=== PATIENT | female | born 1975 | race Caucasian/White ===

== ENCOUNTER 2019-11-13 16:09 | Emergency (ER) | payer OTHER ==
[~2019-11-13] VITALS: Ht 162.6 cm; Wt 111.1 kg
[2019-11-13 16:25] VITALS: BP 151/75
[2019-11-13] MEDS ORDERED: KETOROLAC TROMETH 60MG/2ML VIAL IM ONE (17:15)
== END 2019-11-13 17:52 | disposition home or self-care (01) ==
LOC: ER 16:09
DX: S93.402A Sprain of unspecified ligament of left ankle, initial encounter (principal); S80.01XA Contusion of right knee, initial encounter; Z88.0 Allergy status to penicillin; W10.9XXA Fall (on) (from) unspecified stairs and steps, initial encounter; Y93.01 Activity, walking, marching and hiking; Y92.89 Other specified places as the place of occurrence of the external cause; Y99.0 Civilian activity done for income or pay
CPT/HCPCS: 29515; 73610; 96372; 99283; J1885

== ENCOUNTER 2023-02-09 15:47 | Inpatient (IN) | payer BC, OTHER ==
[~2023-02-09] VITALS: Ht 162.6 cm; Wt 119.0 kg
[2023-02-09 16:47] LABS: Basophils # (auto) 0.2 10 ^3/uL (0-0.2); Basophils % (auto) 1.6 % (0.0-2.0); Eosinophils # (auto) 0.2 10 ^3/uL (0-0.8); Eosinophils % (auto) 1.2 % (0.0-7.0); Hematocrit 40.3 % (36.0-46.0); Hemoglobin 13.5 g/dL (12.2-16.2); Lymphocytes # (auto) 2.6 10 ^3/uL (0.4-5.4); Lymphocytes % (auto) 18.8 % (10.0-50.0); Mean Corpuscular Hemoglobin 30.5 pg (28.0-32.0); Mean Corpuscular Hgb Conc. 33.6 g/dL (32.0-36.0); Mean Corpuscular Volume 90.9 fL (80.0-100.0); Monocytes % (auto) 7.1 % (0.0-12.0); Neutrophils # (auto) 9.9 10 ^3/uL (1.6-8.6); Neutrophils % (auto) 71.3 % (37.0-80.0); Red Blood Cells 4.43 10^6/uL (4.0-5.20); White Blood Cell 13.8 10^3/uL (4.4-10.8)
[2023-02-09 16:53] LABS: Urine Bacteria FEW /hpf (None Seen); Urine Blood Negative /uL (Negative); Urine Clarity HAZY (Clear); Urine Color Yellow (Yellow); Urine Mucus FEW (None Seen); Urine Protein, UAD TRACE (Negative); Urine Specific Gravity 1.026 (1.001-1.035); Urine WBC 3 /hpf (0 - 5); Urine pH 6.5 (5.0-8.0)
[2023-02-09 17:15] LABS: Alanine Aminotransferase 41 U/L (7-40); Albumin 4.5 g/dL (3.2-4.8); Aspartate Aminotransferase 28 U/L (13-40); Bilirubin, Total 0.4 mg/dL (0.2-1.0); Total Protein 7.2 g/dL (5.7-8.2)
[2023-02-09 17:17] LABS: Chloride 106 mmol/L (98-107); Potassium 4.4 mmol/L (3.5-5.1); Sodium 136 mmol/L (136-145)
[2023-02-09 17:19] LABS: Anion Gap 7 (5-15); Carbon Dioxide 23 mmol/L (20-30)
[2023-02-09 17:24] LABS: Alkaline Phosphatase 102 U/L (46-116); BUN/Creatinine Ratio 12.3 (10.0-20.0); Blood Urea Nitrogen 9 mg/dL (9-23); Glucose 225 mg/dL (74-106); Lipase 102 U/L (12-53)
[2023-02-09 17:34] LABS: Amylase 181 U/L (30-118)
[2023-02-09] MEDS ORDERED: MORPHINE SULFATE 4 MG/ML SYR/VIAL IV ONE (18:15)
[2023-02-09] MEDS ORDERED: ONDANSETRON HCL 4 MG/2 ML VIAL IV ONE (18:15)
[2023-02-09] MEDS ORDERED: SODIUM CHLORIDE 0.9% 1,000 ML IV ONE (18:15)
[2023-02-09] MEDS ORDERED: SODIUM CHLORIDE 0.9% 1,000 ML IVB ONE (18:15)
[2023-02-09 22:00] VITALS: PULSE 89; RESP 16; O2SAT 95
[2023-02-09] MEDS ORDERED: MORPHINE SULFATE INJ 2 MG/ml SYRG IV PRN ×2 (22:15→23:15)
[2023-02-09] MEDS ORDERED: DOCUSATE SOD 100 MG CAP PO PRN (22:15)
[2023-02-09] MEDS ORDERED: IBUPROFEN 600 MG TAB PO PRN (22:15)
[2023-02-09] MEDS ORDERED: DEXTROSE (50%) 50ML SYRG IV PRN (22:15)
[2023-02-09] MEDS ORDERED: hydrALAZINE HCL 20 MG/ML VL IV ONE (22:30)
[2023-02-09] MEDS: SODIUM CHLORIDE 0.9% 1,000 ML IV SCH (22:56)
[2023-02-09] MEDS ORDERED: NITROGLYCERIN 0.4 MG SL TAB SL PRN (23:15)
[2023-02-09] MEDS: HYDROmorphone HCL 2 MG/ML VL/or syr IV PRN (23:33)
[2023-02-09] MEDS: ONDANSETRON HCL 4 MG/2 ML VIAL IV PRN (23:33)
[2023-02-10] VITALS (9 sets, daily range): BP systolic 127–168; BP diastolic 68–98; PULSE 71–95; RESP 16–20; TEMP 37.4; O2SAT 94–97
[2023-02-10] MEDS: ACCU-CHEK COMFORT CURVE STRIP VI SCH ×5 (00:34→21:59)
[2023-02-10] MEDS: InsuLIN REG 1unit/0.01ml Soln (100units/ml) SC SCH ×5 (00:35→22:08)
[2023-02-10] MEDS: hydrALAZINE HCL 20 MG/ML VL IV PRN ×2 (01:21→22:13)
[2023-02-10] MEDS: HYDROcodone-ACET 5/325MG TAB PO PRN ×4 (03:10→22:14)
[2023-02-10 05:45] LABS: Basophils # (auto) 0.2 10 ^3/uL (0-0.2); Basophils % (auto) 1.3 % (0.0-2.0); Eosinophils # (auto) 0.2 10 ^3/uL (0-0.8); Eosinophils % (auto) 1.5 % (0.0-7.0); Hematocrit 36.7 % (36.0-46.0); Hemoglobin 12.4 g/dL (12.2-16.2); Lymphocytes # (auto) 2.7 10 ^3/uL (0.4-5.4); Lymphocytes % (auto) 22.2 % (10.0-50.0); Mean Corpuscular Hgb Conc. 33.8 g/dL (32.0-36.0); Mean Corpuscular Volume 91.7 fL (80.0-100.0); Monocytes # (auto) 1.1 10 ^3/uL (0-1.3); Monocytes % (auto) 9.2 % (0.0-12.0); Neutrophils # (auto) 7.9 10 ^3/uL (1.6-8.6); Neutrophils % (auto) 65.8 % (37.0-80.0); Nucleated Red Blood Cells % 0.1 %
[2023-02-10] MEDS: metroNIDAZOLE 500MG/100ML 100 ML IV SCH ×3 (05:47→21:58)
[2023-02-10 05:54] LABS: Alanine Aminotransferase 33 U/L (7-40); Alkaline Phosphatase 90 U/L (46-116); Anion Gap 10 (5-15); Aspartate Aminotransferase 21 U/L (13-40); Blood Urea Nitrogen 9 mg/dL (9-23); Calcium 8.5 mg/dL (8.7-10.4); Carbon Dioxide 22 mmol/L (20-30); Chloride 105 mmol/L (98-107); Glucose 162 mg/dL (74-106); Potassium 3.7 mmol/L (3.5-5.1); Sodium 137 mmol/L (136-145)
[2023-02-10 05:55] LABS: Bilirubin, Total 0.7 mg/dL (0.2-1.0); Total Protein 6.4 g/dL (5.7-8.2)
[2023-02-10] MEDS: FAMOTIDINE (10MG/ML) 2ML VL IV SCH (10:05)
[2023-02-10] MEDS: SUCRALFATE 1 GM/10 ML ORAL SUSP PO SCH ×2 (18:15→21:58)
[2023-02-10] MEDS: SODIUM CHLORIDE 0.9% 1,000 ML IV SCH (18:17)
[2023-02-10] MEDS: PANTOPRAZOLE 40 MG/10 ML VIAL INJ IV SCH (21:58)
[2023-02-11] VITALS (8 sets, daily range): BP systolic 134–160; BP diastolic 74–86; PULSE 83–95; RESP 16–20; TEMP 97.8–98.8; O2SAT 94–98
[2023-02-11] MEDS: metroNIDAZOLE 500MG/100ML 100 ML IV SCH ×3 (05:12→23:38)
[2023-02-11] MEDS: InsuLIN REG 1unit/0.01ml Soln (100units/ml) SC SCH ×3 (05:22→17:14)
[2023-02-11] MEDS: ACCU-CHEK COMFORT CURVE STRIP VI SCH ×3 (05:23→17:14)
[2023-02-11] MEDS: SUCRALFATE 1 GM/10 ML ORAL SUSP PO SCH ×4 (06:42→22:00)
[2023-02-11 06:49] LABS: Basophils # (auto) 0.1 10 ^3/uL (0-0.2); Basophils % (auto) 1.2 % (0.0-2.0); Eosinophils # (auto) 0.2 10 ^3/uL (0-0.8); Eosinophils % (auto) 1.8 % (0.0-7.0); Hematocrit 40.9 % (36.0-46.0); Hemoglobin 13.5 g/dL (12.2-16.2); Lymphocytes # (auto) 2.4 10 ^3/uL (0.4-5.4); Lymphocytes % (auto) 24.5 % (10.0-50.0); Mean Corpuscular Hgb Conc. 32.9 g/dL (32.0-36.0); Mean Corpuscular Volume 94.2 fL (80.0-100.0); Monocytes # (auto) 0.7 10 ^3/uL (0-1.3); Monocytes % (auto) 6.9 % (0.0-12.0); Neutrophils # (auto) 6.3 10 ^3/uL (1.6-8.6); Neutrophils % (auto) 65.6 % (37.0-80.0); Red Blood Cells 4.34 10^6/uL (4.0-5.20); Red Cell Distribution Width 12.8 % (11.8-14.3); White Blood Cell 9.7 10^3/uL (4.4-10.8)
[2023-02-11] MEDS: SODIUM CHLORIDE 0.9% 1,000 ML IV SCH ×3 (07:35→14:30)
[2023-02-11 07:42] LABS: Alanine Aminotransferase 30 U/L (7-40); Albumin 3.9 g/dL (3.2-4.8); Alkaline Phosphatase 128 U/L (46-116); Anion Gap 7 (5-15); Aspartate Aminotransferase 21 U/L (13-40); Blood Urea Nitrogen 7 mg/dL (9-23); Calcium 8.5 mg/dL (8.5-10.1); Carbon Dioxide 22 mmol/L (20-30); Chloride 108 mmol/L (98-107); Glucose 130 mg/dL (74-106); Potassium 3.9 mmol/L (3.5-5.1); Sodium 137 mmol/L (136-145)
[2023-02-11 07:43] LABS: Bilirubin, Total 0.5 mg/dL (0.2-1.0); Total Protein 6.3 g/dL (5.7-8.2)
[2023-02-11 07:54] LABS: Lipase 51 U/L (12-53)
[2023-02-11] MEDS: levoFLOXacin 500MG 100 ML IV SCH (09:36)
[2023-02-11] MEDS: PANTOPRAZOLE 40 MG/10 ML VIAL INJ IV SCH ×2 (09:36→23:40)
[2023-02-11] MEDS: FAMOTIDINE (10MG/ML) 2ML VL IV SCH (09:36)
[2023-02-11 10:03] LABS: Hepatitis B Surface Antigen Negative (Negative)
[2023-02-11 10:25] LABS: Hepatitis C Antibody Negative (Negative)
[2023-02-11] MEDS: ONDANSETRON HCL 4 MG/2 ML VIAL IV PRN ×2 (12:33→20:31)
[2023-02-11] MEDS: hydrALAZINE HCL 20 MG/ML VL IV PRN (17:25)
[2023-02-11] MEDS: HYDROmorphone HCL 2 MG/ML VL/or syr IV PRN (18:21)
[2023-02-12] MEDS: ACCU-CHEK COMFORT CURVE STRIP VI SCH ×4 (00:27→18:00)
[2023-02-12] MEDS: InsuLIN REG 1unit/0.01ml Soln (100units/ml) SC SCH ×4 (00:28→18:00)
[2023-02-12 05:00] VITALS: BP 152/89; PULSE 86; RESP 20; TEMP 98.5; O2SAT 98
[2023-02-12] MEDS: SODIUM CHLORIDE 0.9% 1,000 ML IV SCH (05:15)
[2023-02-12] MEDS: SUCRALFATE 1 GM/10 ML ORAL SUSP PO SCH ×3 (07:00→15:48)
[2023-02-12] MEDS: metroNIDAZOLE 500MG/100ML 100 ML IV SCH ×2 (08:20→14:15)
[2023-02-12 09:00] VITALS: BP 149/75; PULSE 83; RESP 20; TEMP 98; O2SAT 97
[2023-02-12] MEDS ORDERED: amLODIPine BESYLATE 5 MG TAB PO SCH (10:00)
[2023-02-12] MEDS: PANTOPRAZOLE 40 MG/10 ML VIAL INJ IV SCH (11:09)
[2023-02-12] MEDS: levoFLOXacin 500MG 100 ML IV SCH (11:12)
[2023-02-12 13:00] VITALS: BP 154/94; PULSE 85; RESP 20; TEMP 98.4; O2SAT 96
[2023-02-12 16:38] VITALS: BP 154/94; PULSE 85; RESP 20; TEMP 98.4; O2SAT 96
[2023-02-12 17:00] VITALS: BP 154/86; PULSE 95; RESP 18; TEMP 98.4; O2SAT 95
== END 2023-02-12 18:00 | disposition home or self-care (01) | DRG 439 ==
LOC: EEVIPCON 15:47 → ER 15:47 → TELE 23:06 → TELE-EAST 23:37 → EAST 02-11 18:57
PROVIDERS: ADMIT Nurse Practitioner Family; ATTEND Nurse Practitioner Acute Care
DX: K85.90 Acute pancreatitis without necrosis or infection, unspecified (principal); Z68.42 Body mass index [BMI] 45.0-49.9, adult; E11.65 Type 2 diabetes mellitus with hyperglycemia; E66.9 Obesity, unspecified; Z90.49 Acquired absence of other specified parts of digestive tract; Z83.3 Family history of diabetes mellitus; Z82.49 Family history of ischemic heart disease and other diseases of the circulatory system; Z90.710 Acquired absence of both cervix and uterus; Z88.0 Allergy status to penicillin
CPT/HCPCS: 36415; 71046; 74176; 74181; 80053; 81001; 82150; 82962; 83036; 83690; 83735; 84443; 84484; 85025; 86038; 86301; 86803; 87081; 87340; 93005; 96361; 96374; 96375; C9113; G0378; J1815; J1956; J2405; J3490

== ENCOUNTER 2024-05-28 14:09 | Inpatient (IN) | payer BC, OTHER ==
[~2024-05-28] VITALS: Ht 160 cm; Wt 109.0 kg
--- NOTE | 2024-05-28 14:36 | ED.PDOC ---
HPI Comments 49 y/o F, with PMHX of HTN and DM presents to the ED for CC of chest pain. Patient states, that she has been experiencing substernal chest pain that radiates down her right arm x5days. Patient comments on, pain initially starting in her right axial and slowly progressed across her chest. Patient relays, that she was seen at [facility] urgent care today (05/28/24) and was relayed to the ED for a further evaluation of symptoms. Patient denies shortness of breath, palpitations, numbness, fatigue, fever, or N/V/D. No other associated symptoms, modifiers, recent injuries or sick contacts at this time. Chief Complaint: Chest Pain Time Seen by MD: 14:20 Primary Care Provider: YOU HARRIS Reviewed Notes: Nurses Notes, Medications, Allergies Allergies: Coded Allergies: Penicillins (Verified Allergy, Mild, 10/04/09) Uncoded Allergies: DARVOCET (Adverse Reaction, Intermediate, SEVERE NAUSEA, 02/28/11) Home Meds No Active Prescriptions or Reported Meds Information Source: Patient Mode of Arrival: Ambulatory Severity: Moderate Timing: Days Duration: Since onset Prehospital treatment: None Location: Substernal Radiation: Hand (R) Onset: At Rest Cardiac Risk Factors: HTN, Diabetes PE Risk Factors: None History of: None Modifying Factors: Nothing Associated Signs and Symptoms: None Past Medical History PAST MEDICAL HISTORY: DM, HTN Surgical History: Cholecystectomy, Hysterectomy LOBBY ATTENDANT History: 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 History Family History Family History: Reviewed,noncontributory to illness Social History Smoker: Non-Smoker Alcohol: Denies ETOH Use Drugs: Denies Drug Use Lives In: Home Constitutional: denies: chills, diaphoresis, fatigue, fever, malaise, sweats, weakness, others EENTM: denies: blurred vision, double vision, ear bleeding, ear discharge, ear drainage, ear pain, ear ringing, eye pain, eye redness, hearing loss, mouth pain, mouth swelling, nasal discharge, nose bleeding, nose congestion, nose pain, photophobia, tearing, throat pain, throat swelling, voice changes, others Respiratory: denies: cough, hemoptysis, orthopnea, SOB at rest, shortness of breath, SOB with excertion, stridor, wheezing, others Cardiovascular: reports: chest pain; denies: dizzy spells, diaphoresis, Dyspnea on exertion, edema, irregular heart beat, left arm pain, lightheadedness, palpitations, PND, syncope, others Gastrointestinal: denies: abdomen distended, abdominal pain, blood streaked bowels, constipated, diarrhea, dysphagia, difficulty swallowing, hematemesis, melena, nausea, poor appetite, poor fluid intake, rectal bleeding, rectal pain, vomiting, others Genitourinary: denies: abnormal vagina bleeding, burning, dyspareunia, dysuria, flank pain, frequency, hematuria, incontinence, pain, , vagina discharge, urgency, others Neurological: denies: dizziness, fainting, headache, left sided numbness, left sided weakness, numbness, paresthesia, pre-existing deficit, right sided numbness, right sided weakness, seizure, speech problems, tingling, tremors, weakness, others Musculoskeletal: denies: back pain, gout, joint pain, joint swelling, muscle pain, muscle stiffness, neck pain, others Integumetry: denies: bruises, change in color, change in hair/nails, dryness, laceration, lesions, lumps, rash, wounds, others Allergic/Immunocompromised: denies: Difficulty Healing, Frequent Infections, Hives, Itching, others Hematologic/Lymphatic: denies: anemia, blood clots, easy bleeding, easy bruising, swollen glands, others Endocrine: denies: excessive hunger, excessive sweating, excessive thirst, excessive urination, flushing, intolerance to cold, intolerance to heat, unexplained weight gain, unexplained weight loss, others Psychiatric: denies: anxiety, bipolar disorder, depression, hopeless, panic disorder, schizophrenia, sleepless, suicidal, others All Other Systems: Reviewed and Negative Physical Exam General Appearance: Moderate Distress HEENT: Normal ENT Inspection, Pharynx Normal, TMs Normal Neck: Full Range of Motion, Non-Tender, Normal, Normal Inspection Respiratory: Chest Non-Tender, Lungs Clear, No Accessory Muscle Use, No Respiratory Distress, Normal Breath Sounds Cardiovascular: No Edema, No JVD, No Murmur, No Gallop, Normal Peripheral Pulses, Regular Rate/Rhythm Breast Exam: Deferred Gastrointestinal: No Organomegaly, Non Tender, No Pulsatile Mass, Normal Bowel Sounds, Soft Genitalia: Deferred Pelvic: Deferred Rectal: Deferred Extremities: No calf tenderness, Normal capillary refill, Normal inspection, Normal range of motion, Non-tender, No pedal edema Musculoskeletal : Apperance: Normal Neurologic: Alert, No Motor Deficits, No Sensory Deficits Cerebellar Function: NOT DONE Reflexes: NOT DONE Skin: Rash (Right chest possible zoster) Peripheral Pulses: 3+ Radial (R), 3+ Radial (L) Lymphatic: No Adenopathy Was a procedure done? Was a procedure done?: No CP Differential Dx Differential Diagnosis: A-fib, A-Flutter, Angina, Anxiety / Panic Attack, Atrial Dysrhythmia, Electrolyte Disorder Differential Diagnosis: HTN Essential, HTN Accelerated Differential Diagnosis: Angina, Chest Wall Pain, Costochondritis X-Ray, Labs, Meds, VS Vital Signs Date Time Temp Pulse Resp B/P (MAP) Pulse Ox O2 Delivery O2 Flow Rate FiO2 05/28/24 14:43 98.2 69 18 153/83 (106) 95 Lab Test 05/28/24 14:30 Range/Units Troponin I High Sensitivity < 3 L </=34 ng/L Patient alert. Complaining of chest pain. Vitals stable. Answering questions. EKG does not show any acute changes. Continues to have chest pain. Could be early herpes zoster infection. Was given aspirin. Was given morphine. Was given Zofran. Explained to the patient. Continue to monitor. Time of 1ST Reevaluation: 14:50 Reevaluation 1ST: Unchanged Patient Education/Counseling: Diagnosis, Treatment Family Education/Counseling: No Family Present Departure 1 Departure Time of Disposition: 15:34 Impression: Primary Impression: Chest pain of unknown etiology Disposition: 01 HOME / SELF CARE / HOMELESS Admit to: Med Surg Condition: Guarded e-Prescriptions No Active Prescriptions or Reported Meds Critical Care Note Critical Care Time?: No Stability Stability form required: No Heart Score Heart Score: Heart Score Response (Comments) Value History Slightly Suspicious 0 EKG Normal 0 Age 45-64 1 Risk Factors 1 or 2 risk factors 1 Troponin Normal limit 0 Total 2 I personally scribed for RADHA HOUSTON MD ([email or web address]) on 05/28/24 at 14:36. Electronically submitted by Cristina Villagomez [email or web address]). RADHA HOUSTON MD May 28, 2024 14:36
[2024-05-28 15:20] VITALS: PULSE 75; RESP 15; O2SAT 96
[2024-05-28] MEDS: ONDANSETRON HCL 4 MG/2 ML VIAL IV ONE (15:53)
[2024-05-28] MEDS: MORPHINE SULFATE 4 MG/ML SYR/VIAL IV ONE (15:54)
--- NOTE | 2024-05-28 15:58 | DVH ---
XY CHEST PORTABLE, HISTORY: sob COMPARISON: None None TECHNICAL DATA: 1 view of the chest was obtained. FINDINGS: Lines and tubes: None Cardiomediastinal silhouette: normal Pulmonary vasculature: normal Lung expansion: normal Lung airspace: normal Lung interstitium: normal Pleura: normal Pneumothorax: no Bones: Unremarkable Other: no IMPRESSION: No acute intrathoracic abnormality.
[2024-05-28] MEDS: ASPirin 325 MG TAB PO ONE (18:00)
[2024-05-28] MEDS: MORPHINE SULFATE INJ 2 MG/ml SYRG IV ONE (20:55)
[2024-05-28] MEDS ORDERED: hydrALAZINE HCL 20 MG/ML VL IV PRN (21:00)
[2024-05-28] MEDS ORDERED: DEXTROSE (50%) 50ML SYRG IV PRN (21:00)
[2024-05-28] MEDS ORDERED: ONDANSETRON HCL 4 MG/2 ML VIAL IV PRN (21:00)
[2024-05-28] MEDS ORDERED: ACETAMINOPHEN 325 MG TAB PO PRN (21:00)
[2024-05-28] MEDS ORDERED: DOCUSATE SOD 100 MG CAP PO PRN (21:00)
[2024-05-28] MEDS ORDERED: ESCI1TAB36 PO (21:04)
[2024-05-28 21:21] LABS: Basophils # (auto) 0.1 10 ^3/uL (0-0.2); Basophils % (auto) 1.5 % (0.0-2.0); Eosinophils # (auto) 0.2 10 ^3/uL (0-0.8); Hemoglobin 13.9 g/dL (12.2-16.2); Lymphocytes # (auto) 3.7 10 ^3/uL (0.4-5.4); Lymphocytes % (auto) 42.2 % (10.0-50.0); Mean Corpuscular Hemoglobin 32.2 pg (28.0-32.0); Mean Corpuscular Hgb Conc. 34.7 g/dL (32.0-36.0); Mean Corpuscular Volume 92.8 fL (80.0-100.0); Monocytes # (auto) 0.6 10 ^3/uL (0-1.3); Monocytes % (auto) 7.3 % (0.0-12.0); Neutrophils # (auto) 4.1 10 ^3/uL (1.6-8.6); Nucleated Red Blood Cells % 0.1 %; Platelet Count (auto) 254 10^3/uL (140-450); Red Blood Cells 4.31 10^6/uL (4.0-5.20); Red Cell Distribution Width 13.4 % (11.8-14.3); White Blood Cell 8.8 10^3/uL (4.4-10.8)
[2024-05-28] MEDS: SODIUM CHLORIDE 0.9% 1,000 ML IV SCH (21:35)
[2024-05-28 21:36] LABS: Alanine Aminotransferase 25 U/L (7-40); Albumin 4.1 g/dL (3.2-4.8); Alkaline Phosphatase 91 U/L (46-116); Anion Gap 6 (5-15); Aspartate Aminotransferase 19 U/L (13-40); BUN/Creatinine Ratio 13.3 (10.0-20.0); Bilirubin, Total 0.6 mg/dL (0.2-1.0); Blood Urea Nitrogen 13 mg/dL (9-23); Calcium 9.5 mg/dL (8.7-10.4); Carbon Dioxide 26 mmol/L (20-31); Sodium 139 mmol/L (136-145); Total Protein 6.5 g/dL (5.7-8.2)
[2024-05-28 21:41] LABS: Chloride 107 mmol/L (98-107); Glucose 158 mg/dL (74-106)
[2024-05-28] MEDS: InsuLIN REG 1unit/0.01ml Soln (100units/ml) SC SCH (22:00)
[2024-05-28] MEDS: ACCU-CHEK COMFORT CURVE STRIP VI SCH (22:05)
--- NOTE | 2024-05-28 23:04 | DVHHP2 ---
History of Present Illness Reason for Visit: Chest pain of unknown etiology History of Present Illness The patient is a 49-year-old female with past medical history of DM, hypertension, and depression who presented to [facility] ED with complaint of chest pain. Patient reports experiencing substernal chest pain that radiates down to her right arms for the past 5 days, slowly progressed across her chest, getting worse today that prompted this visit. Patient reports, that she was seen at [facility] urgent care today (05/28/24) and was relayed to the ED for a further evaluation of symptoms. Patient was seen and evaluated in the ED, laboratory data shows WBC 8.8, platelets 254, sodium 139, potassium 4.0, BUN 13, creatinine 0.98, GFR 70, glucose 158, troponin < 3. Chest x-ray shows no acute intrathoracic abnormality. Please see medication orders section in the computer. On my assessment, patient denies chest pain at this moment, no headache, no dizziness, no palpitations, no shortness of breaths, no nausea, no vomiting, no fever, no chills. Patient was admitted for further evaluation and medical management. Past Medical History DM, HTN, Depression Past Surgical History Cholecystectomy, Hysterectomy Family History Reviewed, noncontributory to the management of this case. Past Social History The patient lives at home, denies smoking, alcohol or illicit drugs abuse. Review of Systems Constitutional: Yes: Weakness; No: Fever, Chills, Sweats, Malaise, Other Eyes: No: Pain, Vision change, Conjunctivae inflammation, Eyelid inflammation, Other, Redness ENT: No: Ear pain, Ear discharge, Nose pain, Nose discharge, Nose congestion, Mouth pain, Mouth swelling, Throat pain, Throat swelling, Other Respiratory: No: Cough, Dry, Shortness of breath, SOB with excertion, Wheezing, Hemoptysis, Pleuritic Pain, Sputum, Wheezing, Other Cardiovascular: Chest Pain; No: Palpitations, Orthopnea, Paroxysmal Noc. Dyspnea, Edema, Lt Headedness, Other Gastrointestinal: No: Nausea, Vomiting, Abdominal Pain, Diarrhea, Constipation, Melena, Hematochezia, Other Genitourinary: No Dysuria, No Frequency, No Incontinence, No Hematuria, No Retention, No Other Musculoskeletal: No: other, neck pain, shoulder pain, arm pain, back pain, hand pain, leg pain, foot pain Skin: No: Rash, Lesions, Jaundice, Bruising, Other Neurological: No: Weakness, Numbness, Incoordination, Change in speech, Confusion, Seizures, Other Allergies: Coded Allergies: Hydralazine (Verified Allergy, Severe, HIVES, 05/28/24) Penicillins (Verified Allergy, Mild, 10/04/09) Uncoded Allergies: DARVOCET (Adverse Reaction, Intermediate, SEVERE NAUSEA, 02/28/11) Medications Current Medications Medications Dose Ordered Sig/Erich Route Start Time Stop Time Status Last Admin Dose Admin Aspirin 81 mg DAILY PO 05/29/24 10:00 Hydralazine HCl 10 mg Q6HP PRN IV 05/28/24 21:00 Cancel Diagnostic Test (Pha) 1 strip ACHS 05/28/24 22:00 05/28/24 22:05 1 STRIP Insulin Human Regular ACHS SC 05/28/24 22:00 Dextrose 50 ml UD PRN IV 05/28/24 21:00 Sodium Chloride 1,000 ml @ 60 mls/hr [id number] IV 05/28/24 21:00 05/28/24 21:35 60 MLS/HR Acetaminophen/ Hydrocodone Bitart 1 tab Q4HP PRN PO 05/28/24 21:00 Ondansetron HCl 4 mg Q4HP PRN IV 05/28/24 21:00 Docusate Sodium 100 mg BIDPRN PRN PO 05/28/24 21:00 Acetaminophen 650 mg Q6HP PRN PO 05/28/24 21:00 Exam Vital Signs Vital Signs Date Time Temp Pulse Resp B/P (MAP) Pulse Ox O2 Delivery O2 Flow Rate FiO2 05/28/24 21:25 74 14 123/62 05/28/24 20:00 97.6 95 97.6 05/28/24 19:40 Room Air* 0 21 General Appearance: Alert, Oriented X3, Cooperative, No acute distress HEENT: Atraumatic, PERRLA, EOMI, Mucous membr. moist/pink Respiratory: Clear to auscultation, Normal air movement Cardiovascular: Regular rate, Normal S1, Normal S2, No murmurs Abdominal: Normal bowel sounds, Soft, No tenderness, No hepatospenomegaly, No masses Extremities: No clubbing, No cyanosis, No edema, Normal pulses, No tenderness/swelling Skin: No rashes, No breakdown, No significant lesion Neuro: Normal gait, Normal speech, Strength at 5/5 X4 ext, Normal tone, Sensation intact, Cranial nerves 3-12 NL, Reflexes 2+ Psych/Mental Status: Mental status NL, Mood NL Labs/Xrays Labs Test 05/28/24 22:03 05/28/24 21:04 05/28/24 15:46 Range/Units POC Glucose 145 H 70-106 mg/dl White Blood Count 8.8 4.4-10.8 10^3/uL Red Blood Count 4.31 4.0-5.20 10^6/uL Hemoglobin 13.9 12.2-16.2 g/dL Hematocrit 40.0 36.0-46.0 % Mean Corpuscular Volume 92.8 80.0-100.0 fL Mean Corpuscular Hemoglobin 32.2 H 28.0-32.0 pg Mean Corpuscular Hemoglobin Concent 34.7 32.0-36.0 g/dL Red Cell Distribution Width 13.4 11.8-14.3 % Platelet Count 254 140-450 10^3/uL Mean Platelet Volume 7.0 6.9-10.8 fL Neutrophils (%) (Auto) 47.0 37.0-80.0 % Lymphocytes (%) (Auto) 42.2 10.0-50.0 % Monocytes (%) (Auto) 7.3 0.0-12.0 % Eosinophils (%) (Auto) 2.0 0.0-7.0 % Basophils (%) (Auto) 1.5 0.0-2.0 % Neutrophils # (Auto) 4.1 1.6-8.6 10 ^3/uL Lymphocytes # (Auto) 3.7 0.4-5.4 10 ^3/uL Monocytes # (Auto) 0.6 0-1.3 10 ^3/uL Eosinophils # (Auto) 0.2 0-0.8 10 ^3/uL Basophils # (Auto) 0.1 0-0.2 10 ^3/uL Nucleated Red Blood Cells 0.1 % Sodium Level 139 136-145 mmol/L Potassium Level 4.0 3.5-5.1 mmol/L Chloride Level 107 98-107 mmol/L Carbon Dioxide Level 26 20-31 mmol/L Anion Gap 6 5-15 Blood Urea Nitrogen 13 9-23 mg/dL Creatinine 0.98 0.550-1.02 mg/dL Glomerular Filtration Rate Calc 70 >90 mL/min BUN/Creatinine Ratio 13.3 10.0-20.0 Serum Glucose 158 H 74-106 mg/dL Calcium Level 9.5 8.7-10.4 mg/dL Total Bilirubin 0.6 0.2-1.0 mg/dL Aspartate Amino Transferase (AST) 19 13-40 U/L Alanine Aminotransferase (ALT) 25 7-40 U/L Alkaline Phosphatase 91 46-116 U/L Total Protein 6.5 5.7-8.2 g/dL Albumin 4.1 3.2-4.8 g/dL Troponin I High Sensitivity < 3 L </=34 ng/L PATIENT: ERIC RAND ACCT: [id number] UNIT: [id number] : 1975 LOC: ER ROOM / BED: / AGE / SEX: 49 / F ADM STATUS: REG ER SERVICE [id number] ORDERING PHYSICIAN: RADHA HOUSTON MD PROCEDURE(s): CXRP - CHEST PORTABLE REASON: sob ORDER NUMBER(s): [id number], ACCESSION NUMBER(s): [id number] XY CHEST PORTABLE, HISTORY: sob COMPARISON: None None TECHNICAL DATA: 1 view of the chest was obtained. FINDINGS: Lines and tubes: None Cardiomediastinal silhouette: normal Pulmonary vasculature: normal Lung expansion: normal Lung airspace: normal Lung interstitium: normal Pleura: normal Pneumothorax: no Bones: Unremarkable Other: no IMPRESSION: No acute intrathoracic abnormality. Assessment/Plan Assessment/Plan Chest pain of unknown etiology Generalized weakness Plan 1. Admit to telemetry unit 2. Breathing treatment 3. Pain control management 4. Management of fluids and electrolytes 5. Consultation for hospitalist 6. Diagnostic tests chest x-ray 7. DVT prophylaxis-on aspirin 8. Repeat labs CBC, CMP in a.m. 9. Continue with current medical management 10. Treatment plan discussed with patient and RN. Patient verbalized understanding. Plan discussed with: Patient, Other (RN) My Orders Orders - PARVIZ GALVEZ DNP Procedure Category Date Status Time Aspirin Tablet PHA 05/29/24 In Process 10:00 Consistent DIET 05/29/24 Transmitted Carb(Ccho)Diabetes Breakfast Glucose Blood PHA 05/28/24 In Process (Accu-Chek Comfort 22:00 Insulin R (Human) PHA 05/28/24 In Process (Insulin R) 22:00 Dextrose 50% Syringe PHA 05/28/24 In Process 21:00 Allergies JULIEN 05/28/24 In Process 20:56 Code Status CODE 05/28/24 Transmitted 20:56 Sodium Chloride 0.9% PHA 05/28/24 In Process 21:00 Oxygen Per Hour RT 05/28/24 Transmitted 20:56 Hydrocodone-Acet PHA 05/28/24 In Process 5/325mg Tab ([place] 21:00 Ondansetron Hcl PHA 05/28/24 In Process (Zofran) 21:00 Docusate Sodium PHA 05/28/24 In Process Capsule (Colace 21:00 Complete Blood Count LAB 05/29/24 Verified 04:00 Comprehensive LAB 05/29/24 Verified Metabolic Panel 04:00 Condition: Serious JULIEN 05/28/24 In Process 20:56 Acetaminophen Tablet PHA 05/28/24 In Process (Tylenol Tablet) 21:00 Bedrest With Bathroom JULIEN 05/28/24 In Process Privileg 20:56 Sequential JULIEN 05/28/24 In Process Compression Device Problem List: (1) Chest pain of unknown etiology (2) Generalized weakness Date of Service: May 28, 2024 Billing Provider: PARVIZ GALVEZ DNP Common Visit Codes: 62853-[id number] INP/OBS CARE (HIGH) PARVIZ GALVEZ DNP May 28, 2024 23:04
[2024-05-28] MEDS ORDERED: NITROGLYCERIN 0.4 MG SL TAB SL PRN (23:15)
[2024-05-28] MEDS ORDERED: MORPHINE SULFATE INJ 2 MG/ml SYRG IV PRN (23:15)
[2024-05-28] MEDS: MELATONIN 5 MG TAB PO ONE (23:29)
[2024-05-29] MEDS: HYDROcodone-ACET 5/325MG TAB PO PRN (02:56)
[2024-05-29 05:38] LABS: Basophils # (auto) 0.1 10 ^3/uL (0-0.2); Basophils % (auto) 1.1 % (0.0-2.0); Eosinophils # (auto) 0.2 10 ^3/uL (0-0.8); Eosinophils % (auto) 1.8 % (0.0-7.0); Hematocrit 39.8 % (36.0-46.0); Hemoglobin 13.9 g/dL (12.2-16.2); Lymphocytes # (auto) 3.7 10 ^3/uL (0.4-5.4); Lymphocytes % (auto) 41.7 % (10.0-50.0); Mean Corpuscular Hemoglobin 32.5 pg (28.0-32.0); Mean Corpuscular Hgb Conc. 34.9 g/dL (32.0-36.0); Mean Corpuscular Volume 93.1 fL (80.0-100.0); Monocytes # (auto) 0.6 10 ^3/uL (0-1.3); Monocytes % (auto) 6.8 % (0.0-12.0); Neutrophils # (auto) 4.3 10 ^3/uL (1.6-8.6); Neutrophils % (auto) 48.6 % (37.0-80.0); Nucleated Red Blood Cells % 0.1 %; Platelet Count (auto) 252 10^3/uL (140-450); Red Blood Cells 4.27 10^6/uL (4.0-5.20); Red Cell Distribution Width 13.4 % (11.8-14.3); White Blood Cell 8.8 10^3/uL (4.4-10.8)
[2024-05-29 05:55] LABS: Alanine Aminotransferase 21 U/L (7-40); Albumin 4.1 g/dL (3.2-4.8); Alkaline Phosphatase 90 U/L (46-116); Anion Gap 7 (5-15); Aspartate Aminotransferase 15 U/L (13-40); BUN/Creatinine Ratio 18.4 (10.0-20.0); Blood Urea Nitrogen 16 mg/dL (9-23); Calcium 9.6 mg/dL (8.7-10.4); Carbon Dioxide 26 mmol/L (20-31); Chloride 106 mmol/L (98-107); Potassium 4.1 mmol/L (3.5-5.1); Sodium 139 mmol/L (136-145); Total Protein 6.5 g/dL (5.7-8.2)
[2024-05-29 05:56] LABS: Bilirubin, Total 0.6 mg/dL (0.2-1.0)
[2024-05-29 06:20] LABS: Glucose 117 mg/dL (74-106)
[2024-05-29 08:00] VITALS: PULSE 66; RESP 12; TEMP 98; O2SAT 94
--- NOTE | 2024-05-29 08:20 | ECG ---
[facility] Test Date: 2024-05-28 Test Time: 14:32:03 Pat Name: ERIC RAND Department: C Room: [address] [place] [address] A Gender: F Storage Garage Attendant: MARQUISE : 1975 Requested By: RADHA HOUSTON Order Number: [id number] Reading MD: Aldair Winter Measurements Intervals [place] Rate: 62 P: 18 [place]: 187 QRS: 22 QRSD: 86 T: 21 QT: 414 QTc: 421 Interpretive Statements Sinus rhythm ST elev, probable normal early repol pattern Baseline wander in lead(s) II,III,aVF Electronically Signed On 05-30-2024 18:01:07 PST by Aldair Winter Please click the below link to view image of tracing.
[2024-05-29] MEDS: ASPirin 81 mg TAB PO SCH (08:32)
--- NOTE | 2024-05-29 09:57 | DVHINCON2 ---
Family History: Diabetes mellitus G8 MOTHER G8 FATHER FH: diverticulitis G8 SISTER FH: macular degeneration G8 MOTHER FH: macular degeneration G8 MOTHER Hypertension G8 MOTHER Allergies: Coded Allergies: Hydralazine (Verified Allergy, Severe, HIVES, 05/28/24) Penicillins (Verified Allergy, Mild, 10/04/09) Uncoded Allergies: DARVOCET (Adverse Reaction, Intermediate, SEVERE NAUSEA, 02/28/11) Home Meds Reported Medications Escitalopram Oxalate (ESCITALOPRAM OXALATE) 10 Mg Tab, 1 TAB PO DAILY 05/28/24 Current Medications Current Medications Medications (Trade) Dose Ordered Sig/Erich Route PRN Reason Start Time Stop Time Status Last Admin Aspirin 81 mg DAILY PO 05/29/24 10:00 05/29/24 08:32 Hydralazine HCl (Apresoline Injection) 10 mg Q6HP PRN IV SBP>150 05/28/24 21:00 Cancel Diagnostic Test (Pha) (Accu-Chek Comfort Curve T) 1 strip ACHS 05/28/24 22:00 05/29/24 06:55 Insulin Human Regular (InsuLIN R) ACHS SC 05/28/24 22:00 Dextrose 50 ml UD PRN IV Blood Sugar LESS THAN 60 05/28/24 21:00 Sodium Chloride 1,000 ml @ 60 mls/hr [id number] IV 05/28/24 21:00 05/28/24 21:35 Acetaminophen/ Hydrocodone Bitart (Anderson 5/325MG Tab) 1 tab Q4HP PRN PO MODERATE PAIN (4-6 PAIN SCALE) 05/28/24 21:00 05/29/24 08:41 Ondansetron HCl (Zofran) 4 mg Q4HP PRN IV NAUSEA / VOMITING 05/28/24 21:00 Docusate Sodium (Colace Capsule) 100 mg BIDPRN PRN PO FOR CONSTIPATION 05/28/24 21:00 Acetaminophen (Tylenol Tablet) 650 mg Q6HP PRN PO PAIN SCALE 1-3 OR TEMP>100.4 05/28/24 21:00 Nitroglycerin (Ntrostat Sublingual) 0.4 mg Q5MINP PRN SL FOR CHEST PAIN 05/28/24 23:15 Morphine Sulfate 2 mg Q30M PRN IV FOR CHEST PAIN 05/28/24 23:15 Vital Signs Vital Signs Date Time Temp Pulse Resp B/P (MAP) Pulse Ox O2 Delivery O2 Flow Rate FiO2 05/29/24 08:00 98.0 66 12 122/61 (81) 94 98.0 05/29/24 08:00 Room Air* 0 21 Labs/Diagnostic Data Labs Test 05/29/24 06:51 05/29/24 05:08 05/28/24 15:46 Range/Units POC Glucose 122 H 70-106 mg/dl White Blood Count 8.8 4.4-10.8 10^3/uL Red Blood Count 4.27 4.0-5.20 10^6/uL Hemoglobin 13.9 12.2-16.2 g/dL Hematocrit 39.8 36.0-46.0 % Mean Corpuscular Volume 93.1 80.0-100.0 fL Mean Corpuscular Hemoglobin 32.5 H 28.0-32.0 pg Mean Corpuscular Hemoglobin Concent 34.9 32.0-36.0 g/dL Red Cell Distribution Width 13.4 11.8-14.3 % Platelet Count 252 140-450 10^3/uL Mean Platelet Volume 7.1 6.9-10.8 fL Neutrophils (%) (Auto) 48.6 37.0-80.0 % Lymphocytes (%) (Auto) 41.7 10.0-50.0 % Monocytes (%) (Auto) 6.8 0.0-12.0 % Eosinophils (%) (Auto) 1.8 0.0-7.0 % Basophils (%) (Auto) 1.1 0.0-2.0 % Neutrophils # (Auto) 4.3 1.6-8.6 10 ^3/uL Lymphocytes # (Auto) 3.7 0.4-5.4 10 ^3/uL Monocytes # (Auto) 0.6 0-1.3 10 ^3/uL Eosinophils # (Auto) 0.2 0-0.8 10 ^3/uL Basophils # (Auto) 0.1 0-0.2 10 ^3/uL Nucleated Red Blood Cells 0.1 % Sodium Level 139 136-145 mmol/L Potassium Level 4.1 3.5-5.1 mmol/L Chloride Level 106 98-107 mmol/L Carbon Dioxide Level 26 20-31 mmol/L Anion Gap 7 5-15 Blood Urea Nitrogen 16 9-23 mg/dL Creatinine 0.87 0.550-1.02 mg/dL Glomerular Filtration Rate Calc 81 >90 mL/min BUN/Creatinine Ratio 18.4 10.0-20.0 Serum Glucose 117 H 74-106 mg/dL Hemoglobin A1c 6.7 H <5.7 % A1C Calcium Level 9.6 8.7-10.4 mg/dL Magnesium Level 2.0 1.6-2.6 mg/dL Total Bilirubin 0.6 0.2-1.0 mg/dL Aspartate Amino Transferase (AST) 15 13-40 U/L Alanine Aminotransferase (ALT) 21 7-40 U/L Alkaline Phosphatase 90 46-116 U/L Total Protein 6.5 5.7-8.2 g/dL Albumin 4.1 3.2-4.8 g/dL Triglycerides Level 170 H < 150 mg/dL Cholesterol Level 218 H < 200 mg/dL LDL Cholesterol 154 H < 100 mg/dL HDL Cholesterol 48 40-59 mg/dL Thyroid Stimulating Hormone (TSH) 1.95 0.55-4.78 uIU/mL Troponin I High Sensitivity < 3 L </=34 ng/L NICOLE ROBLEDO [facility] May 29, 2024 09:57
[2024-05-29] MEDS ORDERED: HYDR-4902 PO (12:16)
[2024-05-29] MEDS ORDERED: CAPS0.0210 EX (12:16)
--- NOTE | 2024-05-29 12:18 | DVHDS2 ---
Discharge Summary Date of Admission May 28, 2024 at 23:03 Date of Discharge: May 29, 2024 Labs/Diagnostic Data: Laboratory Results Test 05/29/24 11:00 05/29/24 10:57 05/29/24 05:08 05/28/24 15:46 POC Glucose 236 mg/dl (70-106) White Blood Count 8.8 10^3/uL (4.4-10.8) Red Blood Count 4.27 10^6/uL (4.0-5.20) Hemoglobin 13.9 g/dL (12.2-16.2) Hematocrit 39.8 % (36.0-46.0) Mean Corpuscular Volume 93.1 fL (80.0-100.0) Mean Corpuscular Hemoglobin 32.5 pg (28.0-32.0) Mean Corpuscular Hemoglobin Concent 34.9 g/dL (32.0-36.0) Red Cell Distribution Width 13.4 % (11.8-14.3) Platelet Count 252 10^3/uL (140-450) Mean Platelet Volume 7.1 fL (6.9-10.8) Neutrophils (%) (Auto) 48.6 % (37.0-80.0) Lymphocytes (%) (Auto) 41.7 % (10.0-50.0) Monocytes (%) (Auto) 6.8 % (0.0-12.0) Eosinophils (%) (Auto) 1.8 % (0.0-7.0) Basophils (%) (Auto) 1.1 % (0.0-2.0) Neutrophils # (Auto) 4.3 10 ^3/uL (1.6-8.6) Lymphocytes # (Auto) 3.7 10 ^3/uL (0.4-5.4) Monocytes # (Auto) 0.6 10 ^3/uL (0-1.3) Eosinophils # (Auto) 0.2 10 ^3/uL (0-0.8) Basophils # (Auto) 0.1 10 ^3/uL (0-0.2) Nucleated Red Blood Cells 0.1 % Sodium Level 139 mmol/L (136-145) Potassium Level 4.1 mmol/L (3.5-5.1) Chloride Level 106 mmol/L (98-107) Carbon Dioxide Level 26 mmol/L (20-31) Anion Gap 7 (5-15) Blood Urea Nitrogen 16 mg/dL (9-23) Creatinine 0.87 mg/dL (0.550-1.02) Glomerular Filtration Rate Calc 81 mL/min (>90) BUN/Creatinine Ratio 18.4 (10.0-20.0) Serum Glucose 117 mg/dL (74-106) Hemoglobin A1c 6.7 % A1C (<5.7) Calcium Level 9.6 mg/dL (8.7-10.4) Magnesium Level 2.0 mg/dL (1.6-2.6) Total Bilirubin 0.6 mg/dL (0.2-1.0) Aspartate Amino Transferase (AST) 15 U/L (13-40) Alanine Aminotransferase (ALT) 21 U/L (7-40) Alkaline Phosphatase 90 U/L (46-116) Total Protein 6.5 g/dL (5.7-8.2) Albumin 4.1 g/dL (3.2-4.8) Triglycerides Level 170 mg/dL (< 150) Cholesterol Level 218 mg/dL (< 200) LDL Cholesterol 154 mg/dL (< 100) HDL Cholesterol 48 mg/dL (40-59) Thyroid Stimulating Hormone (TSH) 1.95 uIU/mL (0.55-4.78) Troponin I High Sensitivity < 3 ng/L (</=34) Other Laboratory Tests 05/29/24 05:08 Brief Hx & Hospital Course: 49 yo F presented with 1 week of burning chest pain from the right armpit extends to the right chest to midline. Also have viral syndrome 1 week ago. 4 days [employer]OP WORK[employer] started to develop vesicular rash on the same site. Had chicken pox as a kid. In ED EKG wnl, trop negative. Non cardiac cehst pain 2/2 shingles. out of window for antiviral, dc with capsaicin and norco prn. Discussed with patient to follow up with PCP in 2 weeks or dc clinic if pain persists to initiate meds for PHN Condition at Discharge: Good Final Diagnosis/Problems List shingles obesity Discharge Disposition: Home Discharge Instruct/Medications Diet: Regular Activity: No Restrictions, As Tolerated Follow Up/Referral: PCP Medications: capcaisin norco 49 Discharge Statement: "Patient was advised to return to the ER or call 911 if any headaches, dizziness, shortness of breath, chest pain, abdominal pain, bleeding, fevers, or worsening of medical condition. Patient was counseled about treatment plan, medications, possible side effects, patientverbalized understanding. All questions were answered to the best of my ability. This discharge took greater then 30 minutes in planning, reviewing documentation, counseling the patient, and discussing with other team members." ASSESSMENT ASSESSMENT Assessment shingles Date of Service: May 29, 2024 Billing Provider: RAMSEY COWART MD Common Visit Codes: 13069-HWM/OBS DISCH DAY >30min RAMSEY COWART MD May 29, 2024 12:18
[2024-05-29 12:37] LABS: Amphetamine Screen, Urine Neg (NEGATIVE); Barbiturate Scree,Urine Neg (NEGATIVE); Benzodiazephine Screen, Urine Neg (NEGATIVE); Cannabinoid Screen, Urine Neg (NEGATIVE); Cocaine Screen, Urine Neg (NEGATIVE); Opiate Scree,Urine Pos (NEGATIVE); Phencyclidine Screen, Urine Neg (NEGATIVE)
[2024-05-29 14:00] VITALS: BP 116/60; PULSE 77; RESP 12; O2SAT 94
[2024-05-29] MEDS ORDERED: MELATONIN 5 MG TAB PO ONE (22:00)
--- NOTE | 2024-06-05 08:54 | DVHSR ---
APPROVED REPORT EXAM: Two-dimensional and M-mode echocardiogram with Doppler and color Doppler. Blood Pressure: 125/64 mmHg INDICATION ef RISK FACTORS Obesity: Height: 5'3, Weight: 240 DIMENSIONS LVDd4.5 (3.8-5.7cm)LA (2D) (1.9-4.0cm)Aortic Root3.2 (2.0-3.7cm) LVDs3.1 (2.5-4.0cm)LA (MM) (1.9-4.0cm)Aortic Cusp Exc1.8 (1.5-2.0cm) EF (%) 55.0 (55-70%)Rt. Atrium (1.9-4.0cm)Asc. Aorta cm IVSd1.2 (0.7-1.1cm)RV (D) (1.8-2.4cm) PWd1.2 (0.7-1.1cm) Mitral Valve MitralMitral Stenosis E wave0.65m/sMV Mean GR.mmHg A wave0.89m/sMV Peak GR.mmHg E/A ratio0.72D MVAcm2 DECEL [id number] 1/2 Tim[place] Aortic Valve Aortic ValveAortic Stenosis V11.33m/Robyn Mean GR.5mmHg V21.54m/Robyn Peak GR.9mmHg LVOT Diameter1.9 (1.8-2.4cm)Doppler AVA2.45cm2 Pulmonic Valve V21.07m/s Other Information Technically limited study due to body habitus.patient position. Conclusion Technically difficult study. Difficult acoustic windows. Concentric LVH. There appears to be left atrial enlargement. Mild mitral annular calcification. The aortic mitral and tricuspid are structurally normal. The pul leonor is not clearly visualized. Left ventricular function is preserved at 60% with normal RV function. Mild TR. No pericardial effusion masses or vegetations.
== END 2024-05-29 14:33 | disposition home or self-care (01) | DRG 596 ==
LOC: ER 14:09 → EEVIPCON 14:09 → OVERFLOW 23:03
PROVIDERS: ADMIT Student in an Organized Health Care Education/Training Program; ATTEND Student in an Organized Health Care Education/Training Program
DX: B02.9 Zoster without complications (principal); Z68.41 Body mass index [BMI] 40.0-44.9, adult; E11.9 Type 2 diabetes mellitus without complications; I10 Essential (primary) hypertension; F32.A Depression, unspecified; E66.9 Obesity, unspecified; Z88.0 Allergy status to penicillin; Z88.8 Allergy status to other drugs, medicaments and biological substances; Z90.49 Acquired absence of other specified parts of digestive tract; Z90.710 Acquired absence of both cervix and uterus; Z79.899 Other long term (current) drug therapy
CPT/HCPCS: 36415; 71045; 80053; 80061; 80307; 82962; 83036; 83735; 84443; 84484; 85025; 93306; 96361; 96374; 96375; 96376; G0378; J1815; J2405

== ENCOUNTER 2025-02-01 21:18 | Emergency (ER) | payer BC ==
[~2025-02-01] VITALS: Ht 160 cm; Wt 103.3 kg
[~2025-02-01 21:18] MED LIST: CAPS0.0210 EX; ESCI1TAB36 PO; HYDR-4902 PO
[2025-02-01 21:57] VITALS: BP 120/72; PULSE 88; RESP 15; TEMP 99.1; O2SAT 97
[2025-02-01] MEDS ORDERED: IBUP-1456 PO (22:12)
[2025-02-01] MEDS: methylPREDNISolone SOD SUCC 125 MG/2 ML VL IM ONE (22:12)
[2025-02-01] MEDS ORDERED: PRED20TA2 PO (22:12)
[2025-02-01] MEDS ORDERED: CLIN1CAP70 PO (22:12)
[2025-02-01] MEDS: cefTRIAXone SOD 1,000 MG VL IM ONE (22:12)
--- NOTE | 2025-02-01 22:12 | ED.PDOC ---
History of Present Illness(SKN HPI Comments 49 YEAR OLD FEMALE PRESENTS TO ER WITH COMPLAINTS OF LEFT ELBOW PAIN X1 DAY. PATIENT REPORTS THAT SHE WOKE UP WITH PAIN/REDNESS/SWELLING TO LEFT ELBOW THIS MORNING. SHE RATES HER CURRENT PAIN A 4/10 TO LEFT ELBOW WITHOUT RADIATION AND DENIES USE OF MEDICATIONS FOR CURRENT SYMPTOMS. DENIES NUMBNESS/TINGLING, RECENT INJURY OR ANY FURTHER SYMPTOMS/COMPLAINTS Chief Complaint: Abscess Time Seen by MD: 21:44 Primary Care Provider: YOU HARRIS History of Present Illness: Nurses Notes, Medications, Allergies Allergies: Coded Allergies: Hydralazine (Verified Allergy, Severe, HIVES, 05/28/24) Penicillins (Verified Allergy, Mild, 10/04/09) Uncoded Allergies: DARVOCET (Adverse Reaction, Intermediate, SEVERE NAUSEA, 02/28/11) Home Meds Active Scripts Ibuprofen (Ibuprofen) 800 Mg Tab, 1 TAB PO TID PRN, #30 TAB 0 Refills Prov:NORIS BROWN 02/01/25 Prednisone (Prednisone) 20 Mg Tab, 20 MG PO BID for 5 Days, #10 TAB 0 Refills Prov:NORIS BROWN 02/01/25 Clindamycin Hcl (Clindamycin Hcl) 300 Mg Cap, 300 MG PO QID for 7 Days, #28 CAP 0 Refills Prov:NORIS BROWN 02/01/25 Hydrocodone-Acetaminophen (Hydrocodone Bitartrate/AC 5-325 mg) 1 Tab Tab, 1 TAB PO TID PRN for 3 Days, #9 TAB Prov:RAMSEY COWART MD 05/29/24 Capsaicin (Capsaicin) 0.025 % Cre, 0.025 % EX TIDP PRN for 30 Days, #1 CRE Prov:RAMSEY COWART MD 05/29/24 Reported Medications Escitalopram Oxalate (ESCITALOPRAM OXALATE) 10 Mg Tab, 1 TAB PO DAILY 05/28/24 Information Source: Patient Mode of Arrival: Ambulatory Past Medical History PAST MEDICAL HISTORY: DM, HTN Surgical History: Cholecystectomy, Hysterectomy CONTACT [employer] History: No Pertinent CONTACT [employer] History Family History Family History: Unknown Social History Smoker: Non-Smoker Alcohol: Denies ETOH Use Drugs: Denies Drug Use Lives In: Home Constitutional: denies: chills, diaphoresis, fatigue, fever, malaise, sweats, weakness, others EENTM: denies: blurred vision, double vision, ear bleeding, ear discharge, ear drainage, ear pain, ear ringing, eye pain, eye redness, hearing loss, mouth pain, mouth swelling, nasal discharge, nose bleeding, nose congestion, nose pain, photophobia, tearing, throat pain, throat swelling, voice changes, others Respiratory: denies: cough, hemoptysis, orthopnea, SOB at rest, shortness of breath, SOB with excertion, stridor, wheezing, others Cardiovascular: denies: chest pain, dizzy spells, diaphoresis, Dyspnea on exertion, edema, irregular heart beat, left arm pain, lightheadedness, palpitations, PND, syncope, others Gastrointestinal: denies: abdomen distended, abdominal pain, blood streaked bowels, constipated, diarrhea, dysphagia, difficulty swallowing, hematemesis, melena, nausea, poor appetite, poor fluid intake, rectal bleeding, rectal pain, vomiting, others Genitourinary: denies: abnormal vagina bleeding, burning, dyspareunia, dysuria, flank pain, frequency, hematuria, incontinence, pain, , vagina discharge, urgency, others Neurological: denies: dizziness, fainting, headache, left sided numbness, left sided weakness, numbness, paresthesia, pre-existing deficit, right sided numbness, right sided weakness, seizure, speech problems, tingling, tremors, weakness, others Musculoskeletal: reports: others ( STATED IN HPI) Integumetry: reports: others ( STATED IN HPI) Allergic/Immunocompromised: denies: Difficulty Healing, Frequent Infections, Hives, Itching, others Hematologic/Lymphatic: denies: anemia, blood clots, easy bleeding, easy bruising, swollen glands, others Endocrine: denies: excessive hunger, excessive sweating, excessive thirst, excessive urination, flushing, intolerance to cold, intolerance to heat, unexplained weight gain, unexplained weight loss, others Psychiatric: denies: anxiety, bipolar disorder, depression, hopeless, panic disorder, schizophrenia, sleepless, suicidal, others Physical Exam General Appearance: No Apparent Distress HEENT: PERRL/EOMI Neck: Full Range of Motion, Non-Tender, Normal Respiratory: Chest Non-Tender, Lungs Clear, No Accessory Muscle Use, No Respiratory Distress, Normal Breath Sounds Cardiovascular: No Murmur, No Gallop, Regular Rate/Rhythm Breast Exam: Deferred Gastrointestinal: NOT DONE Genitalia: Deferred Pelvic: Deferred Rectal: Deferred Extremities: Normal capillary refill, Normal range of motion Musculoskeletal : Extremity Location: Elbow (TTP/MILD SWELLING/MILD ERYTHEMA/ INCREASED WARMTH NOTED TO LEFT ELBOW. NO FLUCTUANCE/RED STREAKING/FURTHER SKIN CHANGES NOTED. PULSES INTACT) Neurologic: Alert, No Motor Deficits, Normal Affect, Normal Mood, No Sensory Deficits Cerebellar Function: Normal Reflexes: Normal Skin: Dry, Warm Peripheral Pulses: 2+ Radial (R), 2+ Radial (L), 2+ Brachial (R), 2+ Brachial (L) Lymphatic: No Adenopathy Was a procedure done? Was a procedure done?: No Sedation Sedation?: No Differential Diagnosis (INTG) Differential Diagnosis: Abrasion Differential Diagnosis: Abscess Differential Diagnosis: Neurovascular Injury Differential Diagnosis: Other (FRACTURE, SEPSIS) X-Ray, Labs, Meds, VS Vital Signs Date Time Temp Pulse Resp B/P (MAP) Pulse Ox O2 Delivery O2 Flow Rate FiO2 02/01/25 21:57 Room Air* 0 21 02/01/25 21:57 99.1 88 15 120/72 (88) 97 99.1 02/01/25 21:24 99.1 88 15 120/72 97 99.1 Current Medications Medications (Trade) Dose Ordered Sig/Erich Route Start Time Stop Time Status Last Admin Ceftriaxone Sodium (Rocephin) 1,000 mg ONCE ONCE IM 02/01/25 22:00 02/01/25 22:01 DC 02/01/25 22:12 Methylprednisolone Sodium Succinate (Solu Medrol) 125 mg ONCE ONCE IM 02/01/25 22:00 02/01/25 22:01 DC 02/01/25 22:12 PATIENT: RONALD RANDCT: [id number]: [id number] : 1975 LOC: ER ROOM / BED: / AGE / SEX: 49 / F ADM STATUS: REG ER SERVICE 45 ORDERING PHYSICIAN: NORIS BROWN PROCEDURE(s): LELB3 - L ELBOW 3 VIEW XRAY REASON: left elbow pain ORDER NUMBER(s): [id number], ACCESSION NUMBER(s): [id number] EXAM: XY L ELBOW 3 VIEW XRAY REASON FOR EXAM: left elbow pain TECHNIQUE: AP, lateral, and oblique views of the left elbow are submitted for review. COMPARISON: None FINDINGS: There is no acute fracture or dislocation. There is no elbow effusion. There is moderate edema of the soft tissues dorsal to the elbow. IMPRESSION: No radiographic evidence of fracture or dislocation. Moderate soft tissue edema dorsal to the elbow. ATED BY: DEVEN FORDE MD DICTATED DATE/TIME: 02/01/252232 SIGNED BY: DEVEN FORDE MD SIGNED DATE/TIME: 02/01/252232 CC: LEFT ELBOW X-RAY REVIEWED ROCEPHIN 1 G IM ORDERED SOLU-MEDROL 125 MG IM ORDERED ADVISED ON ELEVATION AND ALTERNATE ICE ON/OFF NEEDED FOR PAIN/SWELLING ADVISED TO FOLLOW UP WITH PCP IN 1-2 DAYS PATIENT VERBALIZED UNDERSTANDING AND AGREEABLE WITH CURRENT PLAN OF CARE ADVISED TO RETURN TO ER IMMEDIATELY IF SYMPTOMS WORSEN Images Reviewed?: Images reviewed and evaluated by me Time of 1ST Reevaluation: 21:40 Reevaluation 1ST: N/A Patient Education/Counseling: Diagnosis, Treatment, Prognosis, Need For Follow Up Family Education/Counseling: No Family Present SEPSIS Sepsis Screen Date sepsis recognized/suspect: Feb 01, 2025 Time Sepsis recognized/suspect: 2123 Recent Procedure: No On Antibiotic Therapy: No Respiratory Rate >20: No Heart Rate >90: No Temp<36 C (96.8 F) or >38.3 C: No SBP <90 or MAP <65 mmHG: No New Acute Mental Status Change: No Is the patient on CPAP, BIPAP,: No Physician Orders L Elbow 3 View Xray (02/01/25 21:46) Vital Signs Date Time Temp Pulse Resp B/P (MAP) Pulse Ox O2 Delivery O2 Flow Rate FiO2 02/01/25 21:57 Room Air* 0 21 02/01/25 21:57 99.1 88 15 120/72 (88) 97 99.1 02/01/25 21:24 99.1 88 15 120/72 97 99.1 Medications Medications Dose Ordered Sig/Erich Route Start Time Stop Time Status Last Admin Dose Admin Ceftriaxone Sodium 1,000 mg ONCE ONCE IM 02/01/25 22:00 02/01/25 22:01 DC 02/01/25 22:12 Methylprednisolone Sodium Succinate 125 mg ONCE ONCE IM 02/01/25 22:00 02/01/25 22:01 DC 02/01/25 22:12 Departure 1 Departure Time of Disposition: 22:09 Impression: Primary Impression: Cellulitis of left elbow Disposition: HOME / SELF CARE / HOMELESS Condition: Stable e-Prescriptions Ibuprofen (Ibuprofen) 800 Mg Tab 1 TAB PO TID PRN, #30 TAB 0 Refills Prov: NORIS BROWN 02/01/25 Prednisone (Prednisone) 20 Mg Tab 20 MG PO BID for 5 Days, #10 TAB 0 Refills Prov: NORIS BROWN 02/01/25 Clindamycin Hcl (Clindamycin Hcl) 300 Mg Cap 300 MG PO QID for 7 Days, #28 CAP 0 Refills Prov: NORIS BROWN 02/01/25 Discharged With: Self Critical Care Note Critical Care Time?: No Stability Stability form required: No Heart Score Heart Score: Heart Score Response (Comments) Value History N/A 0 EKG N/A 0 Age N/A 0 Risk Factors N/A 0 Troponin N/A 0 Total 0 NORIS BROWN Feb 01, 2025 22:12
--- NOTE | 2025-02-01 22:36 | DVH ---
EXAM: XY L ELBOW 3 VIEW XRAY REASON FOR EXAM: left elbow pain TECHNIQUE: AP, lateral, and oblique views of the left elbow are submitted for review. COMPARISON: None FINDINGS: There is no acute fracture or dislocation. There is no elbow effusion. There is moderate edema of the soft tissues dorsal to the elbow. IMPRESSION: No radiographic evidence of fracture or dislocation. Moderate soft tissue edema dorsal to the elbow.
== END 2025-02-01 22:44 | disposition home or self-care (01) ==
LOC: ER 21:18 → EEVIPCON 21:18 → ER 22:43
DX: L03.114 Cellulitis of left upper limb (principal); I10 Essential (primary) hypertension; E11.9 Type 2 diabetes mellitus without complications; Z79.899 Other long term (current) drug therapy; Z90.49 Acquired absence of other specified parts of digestive tract; Z90.710 Acquired absence of both cervix and uterus; Z88.0 Allergy status to penicillin; Z88.8 Allergy status to other drugs, medicaments and biological substances
CPT/HCPCS: 73080; 96372; 99284; J0696; J2919